=== PATIENT | female | born 1985 | race Caucasian/White ===

== ENCOUNTER 2019-02-18 23:56 | Emergency (ER) | payer OTHER ==
[~2019-02-18] VITALS: Ht 157.5 cm; Wt 73.4 kg
[2019-02-19 00:01] VITALS: Ht 157.5 cm; Wt 73.4 kg
--- NOTE | 2019-02-19 01:30 | ERD ---
ER Documentation Chief Complaint Chief Complaint C/O GENERALIZED RT SIDED AP X3 DAYS HPI This is a 33-year-old female who presents here in the emergency department with complaints of right-sided abdominal pain and swelling that started about a week but got worse in the last 2 days. Complains of difficulty walking due to pain. Also complains of constipation for a couple of days but had a bowel movement today after taking a stool softener. LMP: Stated that she does not have menstrual. Because she has Nexplanon. G0, . Denies headache, head injury, loss of consciousness, dizziness, neck pain, neck stiffness, throat pain, difficulty swallowing, difficulty breathing lying flat, shoulder pain, chest pain, back pain, nausea, vomiting, constipation, diarrhea, urinary symptoms, or possibility being , loss of bowel and bladder control, trauma, injury, falls, difficulty walking due to pain, numbness or tingling sensation, calf pain, recent travel, recent major surgery in the last 3 weeks, calf pain, recent long travel, recent exposure to any illness, recent antibiotic use in the last 3 months, fever, chills, seizures. Past medical history: Asthma. Chronic venous insufficiency. Medication: Imitr ex. Dulera. Surgical history: Social: Denies smoking, use of alcoholic beverages, use of illegal drugs. ROS All systems reviewed and are negative except as per history of present illness. Medications Home Meds Active Scripts Tramadol HCl (Tramadol HCl) 50 Mg Tablet, 50 MG PO Q4 PRN for PAIN, #5 TAB Prov:PASILABAN,KLAR F 02/19/19 Ondansetron Hcl* (Zofran*) 4 Mg Tablet, 4 MG PO Q8H PRN for NAUSEA AND/OR VOMITING, #30 TAB Prov:PASILABAN,KLAR F 02/19/19 Ibuprofen* (Motrin*) 800 Mg Tab, 800 MG PO Q6H PRN for PAIN AND OR ELEVATED TEMP, #30 TAB Prov:PASILABAN,KLAR F 02/19/19 Allergies Allergies: Coded Allergies: amoxicillin (Verified Allergy, Unknown, 02/19/19) PMhx/Soc Medical and Surgical Hx: pt denies Medical Hx, pt denies Surgical Hx Hx Alcohol Use: No Hx Substance Use: No Hx Tobacco Use: No Smoking Status: Never smoker Physical Exam Vitals Vital Signs Date Temp Pulse Resp B/P (MAP) Pulse Ox O2 O2 Flow FiO2 Time Delivery Rate 02/19/19 98.7 71 18 120/69 98 Room Air 05:30 (86) 02/19/19 98.2 69 17 144/64 100 00:01 (90) Physical Exam Const: No acute distress Head: Atraumatic Eyes: Normal Conjunctiva ENT: Normal External Ears, Nose and Mouth. Neck: Full range of motion. No meningismus. Resp: Clear to auscultation bilaterally Cardio: Regular rate and rhythm, no murmurs Abd: Soft, non tender, non distended. Normal bowel sounds. Negative Keen sign. Right lower abdominal tenderness to palpation. Mild swelling to right lower abdominal area. No CVA tenderness. Skin: No petechiae or rashes. No diaphoresis. Color appears normal for ethnicity. No skin tenting. No signs of severe dehydration. Back: No midline or flank tenderness. Ext: No cyanosis, or edema Neur: Awake and alert. No neurological deficits. Psych: Normal Mood and Affect Result Diagram: 02/19/19 [id number] Results 24 hrs Laboratory Tests Test 02/19/19 01:47 02/19/19 01:49 02/19/19 01:57 White Blood Count 7.9 10^3/ul Red Blood Count 4.19 10^6/ul Hemoglobin 13.4 g/dl Hematocrit 39.7 % Mean Corpuscular Volume 94.7 fl Mean Corpuscular Hemoglobin 32.0 pg Mean Corpuscular 33.8 g/dl Hemoglobin Concent Red Cell Distribution Width 13.1 % Platelet Count 330 10^3/UL Mean Platelet Volume 10.1 fl Immature Granulocytes % 0.300 % Neutrophils % 54.2 % Lymphocytes % 33.2 % Monocytes % 9.3 % Eosinophils % 2.0 % Basophils % 1.0 % Nucleated Red Blood Cells % 0.0 /100WBC Immature Granulocytes # 0.020 10^3/ul Neutrophils # 4.3 10^3/ul Lymphocytes # 2.6 10^3/ul Monocytes # 0.7 10^3/ul Eosinophils # 0.2 10^3/ul Basophils # 0.1 10^3/ul Nucleated Red Blood Cells # 0.0 10^3/ul Sodium Level 141 mmol/L Potassium Level 4.4 mmol/L Chloride Level 104 mmol/L Carbon Dioxide Level 27 mmol/L Anion Gap 10 Blood Urea Nitrogen 17 mg/dl Creatinine 0.71 mg/dl Est Glomerular Filtrat > 60 mL/min Rate mL/min Glucose Level 101 mg/dl Calcium Level 9.2 mg/dl Total Bilirubin 0.4 mg/dl Direct Bilirubin 0.00 mg/dl Indirect Bilirubin 0.4 mg/dl Aspartate Amino 25 IU/L Transf (AST/SGOT) Alanine 24 IU/L Aminotransferase (ALT/SGPT) Alkaline Phosphatase 69 IU/L Total Protein 7.6 g/dl Albumin 4.4 g/dl Globulin 3.20 g/dl Albumin/Globulin Ratio 1.37 Amylase Level 97 U/L Lipase 78 U/L Urine Color YELLOW Urine Clarity SLIGHTLY CLOUDY Urine pH 6.0 Urine Specific [place] 1.016 Urine Ketones TRACE mg/dL Urine Nitrite NEGATIVE mg/dL Urine Bilirubin NEGATIVE mg/dL Urine Urobilinogen NEGATIVE mg/dL Urine Leukocyte Esterase NEGATIVE Saud/ul Urine Microscopic RBC 1 /HPF Urine Microscopic WBC 0 /HPF Urine Squamous Epithelial Cells FEW /HPF Urine Bacteria FEW /HPF Urine Hemoglobin NEGATIVE mg/dL Urine Glucose NEGATIVE mg/dL Urine Total Protein NEGATIVE mg/dl POC Beta HCG, Qualitative NEGATIVE Current Medications Medications Dose Sig/Jorge Start Time Status Last (Trade) Ordered Route PRN Stop Time Admin Dose Reason Admin Morphine 4 mg ONCE STAT 02/19/19 DC 02/19/19 Sulfate IV 01:31 02:03 (morphine) 02/19/19 01:33 Ondansetron 4 mg ONCE STAT 02/19/19 DC 02/19/19 HCl (Zofran IV 01:31 02:03 Inj) 02/19/19 01:33 Sodium 1,000 ml @ Q1H ONCE 02/19/19 DC 02/19/19 Chloride 1,000 mls/hr IV 02:00 02:04 02/19/19 02:59 Sodium 100 ml @ ud STK-MED 02/19/19 DC 02/19/19 Chloride ONCE .ROUTE 02:50 03:08 02/19/19 02:51 Iohexol 150 ml STK-MED 02/19/19 DC 02/19/19 (Omnipaque ONCE .ROUTE 02:50 03:08 300mg/ ml) 02/19/19 02:51 Procedures/MDM Diagnostic tests: POC urine : Negative. Urinalysis: Reviewed. Culture urine: Sent. Blood works: Reviewed. CT of the abdomen and pelvis with IV contrast: Prominent left ovarian and left pelvic pain which may reflect pelvic congestion syndrome. Consider further evaluation with pelvic ultrasound. Left adnexal cyst measuring 1.2 x 1.5 cm. Anterior left lower lobe scar or discoid atelectasis. Pelvic ultrasound: Unremarkable ultrasound appearance of the uterus and right ovary. Nonvisualization of the left ovary with note made of left-sided prominent manuela uterine vessels, which can be seen in the setting of pelvic congestion syndrome associated with chronic pelvic pain. Treatment: Saline lock. Normal saline IV bolus. Morphine IV. Zofran IV. Re-evaluation: No episode of emesis here in the emergency department. Denies chest pain, back pain, abdominal pain. Negative Keen sign. Negative Bloxom sign (heel jar test). Negative psoas sign. Negative Rovsing sign. No CVA tenderness. Able to jump twice without developing abdominal pain. Ambulatory with steady gait and without pain to abdomen. Differential diagnosis I have low suspicion for pancreatitis, cholecystitis, diverticulitis, diverticulitis with abscess, bowel obstruction, hernia with incarceration/strangulation, appendicitis, appendicitis with abscess, ruptured appendicitis, pyelonephritis, obstructing kidney stones, septic stone, nephrolithiasis, AAA, PID. Final diagnosis: Abdominal pain. Chronic pelvic pain. Prescription: Motrin. Tramadol. Zofran. Follow-up with PCP in the next 24-48 hours. Follow-up with tie bucker in the next 24 to 48 hours. Come back here in the emergency department for any new symptoms or any worsening symptoms. All questions and concerns were answered. Patient and family members verbalized understanding and agreed with plan of care. Hemodynamically stable on discharge. Departure Diagnosis: Primary Impression: Abdominal pain Additional Impression: Pelvic pain Condition: Stable Additional Instructions: Follow-up with PCP in the next 24-48 hours. Follow-up with tie bucker in the next 24 to 48 hours. Come back here in the emergency department for any new symptoms or any worsening symptoms. SHAYLEE ALONSO February 19, 2019 01:30
[2019-02-19] MEDS ORDERED: ONDANSETRON 4 MG INJ IV STA (01:31)
[2019-02-19] MEDS ORDERED: morphine 4 MG/ML VIAL IV STA (01:31)
[2019-02-19] MEDS ORDERED: SOD CHLORIDE 0.9% 1,000 ML IV ONE (02:00)
[2019-02-19] MEDS ORDERED: SOD CHLORIDE 0.9% 100 ML ONE (02:50)
[2019-02-19] MEDS ORDERED: IOHEXOL 300MG/ML 150 ML BTL ONE (02:50)
[2019-02-19] MEDS ORDERED: TRAM50TA2 PO (05:14)
[2019-02-19] MEDS ORDERED: ONDA4TAB8 PO (05:14)
[2019-02-19] MEDS ORDERED: IBUP800T48 PO (05:14)
[2019-02-19 05:30] VITALS: BP 120/69; PULSE 71; RESP 18
== END 2019-02-19 05:32 | disposition home or self-care (01) ==
LOC: FTE 23:56
DX: R10.84 Generalized abdominal pain (principal); J45.909 Unspecified asthma, uncomplicated; R10.2 Pelvic and perineal pain
CPT/HCPCS: 36415; 74177; 76830; 76856; 80053; 81001; 81025; 82150; 83690; 85025; 87086; 96361; 96374; 96375; J2270; J2405; J7030; Q9967; Z7502; Z7610; 81003